=== PATIENT | female | born 1975 | race Caucasian/White ===

== ENCOUNTER 2022-01-12 07:47 | Outpatient (CLI) | payer BC, OTHER ==
[2022-01-12 10:04] LABS: Hemoglobin 11.3 g/dL (12.0-15.5); Mean Corpuscular HGB CONC 32.1 g/dL (32.0-36.0); Mean Corpuscular Hemoglobin 27.9 pg (27.0-33.0); Mean Corpuscular Volume 86.9 fl (81.6-98.3); Mean Platelet Volume 10.7 fl (7.4-10.4); Platelet Count 364 10x3/uL (150-450); RBC Distribution Width 14.4 % (11.5-14.5); Red Blood Cell (RBC) Count 4.05 10x6/uL (3.90-5.03); White Blood Cell (WBC) Count 7.8 10x3/uL (3.5-10.5)
[2022-01-12 10:21] LABS: BHCG - Serum Negative (NEGATIVE); Pregs Control Background? CLEAR/WHITE (CLR/WHITE); Pregs Control Bar Appear? YES (CONTROL BAR)
== END 2022-01-12 07:48 | disposition home or self-care (01) ==
LOC: CSHLAB 07:47
PROVIDERS: ATTEND Obstetrics & Gynecology
DX: Z01.812 Encounter for preprocedural laboratory examination (principal); Z20.822 Contact with and (suspected) exposure to COVID-19; N93.9 Abnormal uterine and vaginal bleeding, unspecified; R87.622 Low grade squamous intraepithelial lesion on cytologic smear of vagina (LGSIL)
CPT/HCPCS: 84703; 85027; 86850; 86900; 86901; 87811

== ENCOUNTER 2022-01-17 05:48 | Day surgery (SDC) | payer BC ==
[2022-01-12 10:04] LABS: Hemoglobin 11.3 g/dL (12.0-15.5); Mean Corpuscular HGB CONC 32.1 g/dL (32.0-36.0); Mean Corpuscular Hemoglobin 27.9 pg (27.0-33.0); Mean Corpuscular Volume 86.9 fl (81.6-98.3); Mean Platelet Volume 10.7 fl (7.4-10.4); Platelet Count 364 10x3/uL (150-450); RBC Distribution Width 14.4 % (11.5-14.5); Red Blood Cell (RBC) Count 4.05 10x6/uL (3.90-5.03); White Blood Cell (WBC) Count 7.8 10x3/uL (3.5-10.5)
[2022-01-12 10:21] LABS: BHCG - Serum Negative (NEGATIVE); Pregs Control Background? CLEAR/WHITE (CLR/WHITE); Pregs Control Bar Appear? YES (CONTROL BAR)
[2022-01-15 10:39] VITALS: BMI 29.7
[2022-01-17] MEDS ORDERED: Famotidine/PF 20 mg/2ml Vial ONE (06:18)
[2022-01-17] MEDS ORDERED: Gabapentin 300 MG CAP ONE (06:18)
[2022-01-17] MEDS ORDERED: CeleCOXIB 100 MG CAP ONE (06:18)
[2022-01-17] MEDS ORDERED: Lidocaine 1% MPF 2 ML VIAL ONE (06:56)
[2022-01-17] MEDS ORDERED: Midazolam HCl 2 mg/2 ml Vial ONE (06:59)
[2022-01-17] MEDS ORDERED: Fentanyl 250 MCG/5 ML VIAL ONE (06:59)
[2022-01-17] MEDS ORDERED: Ondansetron PF 4 MG/2 ML Vial ONE ×2 (06:59→11:23)
[2022-01-17] MEDS ORDERED: Lidocaine 1% PF 5 ML VIAL ONE (06:59)
[2022-01-17] MEDS ORDERED: PROPOFOL 20 ML ONE (06:59)
[2022-01-17] MEDS ORDERED: Rocuronium Bromide 10 MG/ML (10ML VIAL) ONE (06:59)
[2022-01-17] MEDS ORDERED: Glycopyrrolate 0.2 MG/ML 5 ML SYRINGE ONE (06:59)
[2022-01-17] MEDS ORDERED: Ketorolac Tromethamine 30 MG/ML VIAL ONE (07:00)
[2022-01-17] MEDS ORDERED: Dexamethasone 20 MG/5 ML VIAL ONE (07:00)
[2022-01-17] MEDS ORDERED: EPINEPHrine 1 MG/ML AMP ONE (07:06)
[2022-01-17] MEDS ORDERED: Bupivacaine PF 0.5% 30 ML VIAL ONE (07:07)
[2022-01-17] MEDS ORDERED: CEFAZOLIN 2 GM VIAL ONE (07:29)
[2022-01-17] MEDS ORDERED: Fentanyl 100 MCG/2 ML VIAL ONE ×2 (09:02→09:42)
== END 2022-01-17 11:30 | disposition home or self-care (01) ==
LOC: CSHSDC 05:48
PROVIDERS: ATTEND Obstetrics & Gynecology
PROC: 0UT94ZZ Resection of Uterus, Percutaneous Endoscopic Approach (ICD-10-PCS; principal; 2022-01-17)
PROC: 0UT74ZZ Resection of Bilateral Fallopian Tubes, Percutaneous Endoscopic Approach (ICD-10-PCS; principal; 2022-01-17)
DX: N80.0 Endometriosis of uterus (principal); N87.0 Mild cervical dysplasia; N83.8 Other noninflammatory disorders of ovary, fallopian tube and broad ligament; N94.6 Dysmenorrhea, unspecified; N92.0 Excessive and frequent menstruation with regular cycle; E78.5 Hyperlipidemia, unspecified; Z79.899 Other long term (current) drug therapy; Z20.822 Contact with and (suspected) exposure to COVID-19
CPT/HCPCS: 84703; 85027; 86850; 86900; 86901; 87811; 88307; C1776; J0171; J0690; J1100; J1885; J2250; J2405; J2704; J3010; S0020; S0028